=== PATIENT | female | born 1965 | race Caucasian/White ===

== ENCOUNTER 2021-07-04 09:00 | Day surgery (SDC) | payer BC, OTHER ==
[2021-06-29 17:52] VITALS: BMI 25.0
[~2021-07-04 09:00] MED LIST: LACTATED RINGERS 1,000 ML IV SCH
--- NOTE | 2021-07-04 09:05 | P.GSHP ---
History of Present Illness H&P Date: 07/04/21 CHIEF COMPLAINT: Colon screen HISTORY OF PRESENT ILLNESS: The patient is a 56-year-old female who presents for colon screen. Lower endoscopy was offered for further evaluation and management. PAST MEDICAL HISTORY: Please see list. PAST SURGICAL HISTORY: Please see list. MEDICATIONS: Please see list. ALLERGIES: Please see list. SOCIAL HISTORY: No illicit drug use FAMILY HISTORY: No reports of Crohn disease or ulcerative colitis. REVIEW OF ORGAN SYSTEMS: CONSTITUTIONAL: No reports of fevers or chills. PHYSICAL EXAM: VITAL SIGNS: Stable GENERAL: Well-developed pleasant in no acute distress. HEENT: No scleral icterus. Extraocular movements grossly intact. Moist buccal mucosa. NECK: Supple without lymphadenopathy. CHEST: Unlabored respirations. Equal bilateral excursions. CARDIOVASCULAR: Regular rate and rhythm. Distal 2+ pulses. ABDOMEN: Soft, nontender, nondistended. MUSCULOSKELETAL: No clubbing, cyanosis, or edema. ASSESSMENT: 1. Colon screen. PLAN: 1. Recommend proceeding with a lower endoscopy Past Medical History Past Medical History: Asthma, Cancer, Fibromyalgia, GERD/Reflux, Hearing Disorder / Deafness, Musculoskeletal Disorder, Osteoarthritis (OA), Skin Disorder, Sleep Apnea/CPAP/BIPAP Additional Past Medical History / Comment(s): "CERVICAL CA INSITU 1999, REMOVED IN OFFICE." FEBRILE SEIZURE AT 17 MO. HYPOGLYCEMIA. SI JOINTS LOOSE, DISLOCATE EASILY; SCIATICA LT SIDE. 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 ROSACEA. USES CPAP. History of Any Multi-Drug Resistant Organisms: None Reported Past Surgical History: Bladder Surgery, Cholecystectomy, Hysterectomy, Orthopedic Surgery, Tonsillectomy Additional Past Surgical History / Comment(s): SINUS SURGERY. LAPAROSCOPIES, MULT - HX ENDOMETRIOSIS. LT KNEE SCOPE. URETHRAL SUSPENSION. COLONOSCOPY, TAM PROCEDURE Past Anesthesia/Blood Transfusion Reactions: No Reported Reaction Smoking Status: Former smoker - Past Family History Mother Family Medical History: No Reported History Medications and Allergies Home Medications Medication Instructions Recorded Confirmed Type Albuterol Inhaler (Mhu) [Ventolin 1 - 2 puff INHALATION RT-Q6H PRN 06/05/16 06/29/21 History Hfa Inhaler] Gabapentin [Neurontin] 800 mg PO TID PRN 06/05/16 06/29/21 History Albuterol Sulfate [Proair Hfa] 1 - 2 puff INHALATION Q6HR PRN 06/29/21 06/29/21 History Cholecalciferol (Vitamin D3) 125 mcg PO DAILY 06/29/21 06/29/21 History [Vitamin D3 (125 MCG = 5,000 IU)] L.acidoph,Paracasei, B.lactis 1 each PO DAILY 06/29/21 06/29/21 History [Probiotic] Linaclotide [Linzess] 290 mcg PO DAILY 06/29/21 06/29/21 History Midodrine HCl [ProAmantine] 2.5 mg PO DAILY 06/29/21 06/29/21 History guanFACINE HCL [Intuniv] 2 mg PO DAILY 06/29/21 06/29/21 History Allergies Allergy/AdvReac Type Severity Reaction Status Date / Time adhesive tape Allergy RIOS SKIN Verified 06/29/21 17:39 benzocaine Allergy SEVERE Verified 06/29/21 17:39 EDEMA IN VAGINAL AREA benzonatate Allergy Dyspnea Verified 06/29/21 17:39 [From Maria C Robles] gatifloxacin [From Tequin] Allergy Anaphylaxis Verified 06/29/21 17:39
[2021-07-04 09:31] VITALS: TEMP 97.1
[2021-07-04] MEDS ORDERED: LIDOCAINE 1% (10MG/ML) FOR IV START INTRADERMA ONE (09:39)
[2021-07-04 09:49] LABS: Glucose,Whole Blood 99 mg/dL (75-99)
[2021-07-04] MEDS ORDERED: PROPOFOL 10 MG/ML 20 ML VIAL IV ONE (10:02)
--- NOTE | 2021-07-04 10:46 | P.PCN ---
Date of Procedure: 07/04/21 Description of Procedure: PREOPERATIVE DIAGNOSIS: Colonoscopy screening. POSTOPERATIVE DIAGNOSIS: Colonoscopy screening. OPERATION: Colonoscopy to the cecum, ileocecal valve and appendiceal orifice. SURGEON: Leah Muñiz MD. ANESTHESIA: MAC. INDICATIONS: The patient is a 56-year-old female who presents for colonoscopy screening. Benefits and risks were described and informed consent was obtained. DESCRIPTION OF PROCEDURE: The patient had undergone Sutab prep. The patient had been brought into the operating room and laid in the left lateral decubitus position. After adequate intravenous sedation, the rectum was examined with 2% lidocaine jelly. No external hemorrhoids were encountered. The rectal tone was within normal limits. No lesions were palpated in the rectal vault. An Olympus colonoscope was advanced until the cecum, ileocecal valve and appendiceal orifice were clearly viewed. The prep was fair. No scattered diverticulosis was encountered. No colonic polyps were found. No evidence of focal colitis was found. Retroflexion of the scope demonstrated grade 1 internal hemorrhoids without active bleeding or inflammation. The colon was desufflated. The patient had tolerated the procedure well. Withdrawal time was over 6 minutes. FINDINGS: Aronchick preparation quality scale 3 (1-5) Internal hemorrhoids, grade 1 No external prolapsed hemorrhoids. No arteriovenous malformations. No adenomatous polyps. No focal colitis. RECOMMENDATIONS: Lower endoscopy in 5 years, 2025 Plan - Discharge Summary Discharge Rx Participant: No New Discharge Prescriptions: Continue Albuterol Inhaler (Mhu) [Ventolin Hfa Inhaler (Mhu)] 1 - 2 puff INHALATION RT-Q6H PRN PRN Reason: ASTHMA SX Gabapentin [Neurontin] 800 mg PO TID PRN PRN Reason: Pain guanFACINE HCL [Intuniv] 2 mg PO DAILY L.acidoph,Paracasei, B.lactis [Probiotic] 1 each PO DAILY Cholecalciferol (Vitamin D3) [Vitamin D3 (125 MCG = 5,000 IU)] 125 mcg PO DAILY Albuterol Sulfate [Proair Hfa] 1 - 2 puff INHALATION Q6HR PRN PRN Reason: ASTHMA Midodrine HCl [ProAmantine] 2.5 mg PO DAILY Linaclotide [Linzess] 290 mcg PO DAILY Discharge Medication List Albuterol Inhaler (Mhu) [Ventolin Hfa Inhaler (Mhu)] 1 - 2 puff INHALATION RT- Q6H PRN 06/05/16 [History] Gabapentin [Neurontin] 800 mg PO TID PRN 06/05/16 [History] Albuterol Sulfate [Proair Hfa] 1 - 2 puff INHALATION Q6HR PRN 06/29/21 [History] Cholecalciferol (Vitamin D3) [Vitamin D3 (125 MCG = 5,000 IU)] 125 mcg PO DAILY 06/29/21 [History] L.acidoph,Paracasei, B.lactis [Probiotic] 1 each PO DAILY 06/29/21 [History] Linaclotide [Linzess] 290 mcg PO DAILY 06/29/21 [History] Midodrine HCl [ProAmantine] 2.5 mg PO DAILY 06/29/21 [History] guanFACINE HCL [Intuniv] 2 mg PO DAILY 06/29/21 [History] Follow up Appointment(s)/Referral(s): Leah Muñiz MD [STAFF PHYSICIAN] - As Needed Patient Instructions/Handouts: *[facility] - (Anesthesia) Endoscopy Discharge Instructions, Colonoscopy (DC) Activity/Diet/Wound Care/Special Instructions: Repeat colonoscopy 5 years, 2025 Discharge Disposition: HOME SELF-CARE
[2021-07-04 11:17] VITALS: BP 128/76; PULSE 58; RESP 16
== END 2021-07-04 11:32 | disposition home or self-care (01) ==
LOC: ORWHC2ENDO 09:00
PROVIDERS: ATTEND Surgery Plastic and Reconstructive Surgery
DX: Z12.11 Encounter for screening for malignant neoplasm of colon (principal); K64.0 First degree hemorrhoids; J45.909 Unspecified asthma, uncomplicated; M79.7 Fibromyalgia; K21.9 Gastro-esophageal reflux disease without esophagitis; H91.90 Unspecified hearing loss, unspecified ear; G47.33 Obstructive sleep apnea (adult) (pediatric); B27.00 Gammaherpesviral mononucleosis without complication; M19.90 Unspecified osteoarthritis, unspecified site; E16.2 Hypoglycemia, unspecified; G47.30 Sleep apnea, unspecified; M54.32 Sciatica, left side; Z85.41 Personal history of malignant neoplasm of cervix uteri; Z98.890 Other specified postprocedural states; Z87.891 Personal history of nicotine dependence; L71.9 Rosacea, unspecified; Z90.49 Acquired absence of other specified parts of digestive tract; Z90.710 Acquired absence of both cervix and uterus; Z79.899 Other long term (current) drug therapy; Z88.8 Allergy status to other drugs, medicaments and biological substances; Z91.09 Other allergy status, other than to drugs and biological substances; F98.8 Other specified behavioral and emotional disorders with onset usually occurring in childhood and adolescence
CPT/HCPCS: J2704; G0121

== ENCOUNTER → 2022-12-14 | Outpatient (CLI) | payer OTHER ==
[2022-12-14 10:19] VITALS: BP 117/73; PULSE 64; RESP 16; TEMP 97.9
--- NOTE | 2022-12-14 10:42 | P.GSHP ---
History of Present Illness H&P Date: 12/14/22 Chief Complaint: Right breast pain Alejandra is a 57-year-old white female seen in consultation for Dr. Pierce regarding right breast pain. She underwent a bilateral mammogram on [id number] which was benign BIRADS 2. She then underwent a right breast diagnostic mammogram on 2922 followed by a right breast ultrasound and which were benign BIRADS 1. Approximately August 2022 she experienced shooting pain in her right breast starting from medial going to the area of the nipple. Concurrent with that she noted itching of the nipple areolar complex throughout the day. The pain was fleeting and intermittent. She did not attribute any specific activity to elicit in the pain. She also noted that the nipple on the right side was more tract. The pain has resolved. The nipple continues to be indirect. She is not complaining of any nipple discharge or skin changes otherwise. She has never had any surgery on her breast. She is not complaining of any recent trauma or infection in the breast. She is not complaining of any pain or changes in the left breast. The patient has lost 65 pounds in the last year. There was no change in the hormone prescription within the breast pain started. The patient has had cervical cancer insitu in 1999. Caffeine: several cans of ice a day nicotine: none, stopped since 1987 chocolate: occasional BCP: when diagnosed with endometirosis in her 20's used them for 20 years hormones: takes estradiol and vaginal inserts Family History: adopted biological aunt maternal : cervical cancer Hormonal History; menarche: 11 G2M2 hysterectomy at 42 left ovaries hormones: since June 2021 BCP: 1994 until 2006 Surgical History: hysterectomy 5 laporotomy to clean out endometriosis gallbladder knee surgery Eulogio fundoplication bladder sling sinus surgery tonsil 3 colonoscopies, EGD Medical History: asthma\\hypoglycemia low BP ADHD IBS epsteen wells Social History: nicotine: none alcohol: rare drugs: none - Constitutional Constitutional: Reports sweats - EENT Eyes: denies blurred vision, denies pain Ears: deny: decreased hearing (auditory processing disorder) Ears, nose, mouth and throat: Reports headache - Breasts Breasts: bilateral: as per HPI - Cardiovascular Cardiovascular: Reports shortness of breath, Denies chest pain - Respiratory Comment: asthma - Gastrointestinal Comment: IBS Gastrointestinal: Reports diarrhea, Denies abdominal pain, Denies nausea, Denies vomiting - Genitourinary (Female) Comment: chronic kidney stones Genitourinary: Reports kidney stones - Menstruation Menstruation: Reports post hysterectomy - Musculoskeletal Comment: Fibromyalgia, Jacy-Wells - Integumentary Integumentary: Reports as per HPI - Neurological Neurological: Denies numbness, Denies weakness - Psychiatric Psychiatric: Reports anxiety, Reports depression - Endocrine Endocrine: Reports fatigue, Reports weight change - Hematologic/Lymphatic Comment: none - Allergic/Immunologic Allergic/Immunologic: Reports seasonal allergies Past Medical History Past Medical History: Asthma, Cancer, Fibromyalgia, GERD/Reflux, Hearing Disorder / Deafness, Musculoskeletal Disorder, Osteoarthritis (OA), Skin Disorder, Sleep Apnea/CPAP/BIPAP Additional Past Medical History / Comment(s): "CERVICAL CA INSITU 1999, REMOVED IN OFFICE." FEBRILE SEIZURE AT 17 MO. HYPOGLYCEMIA. SI JOINTS LOOSE, DISLOCATE EASILY; SCIATICA LT SIDE. ALTERATION IN HEARING, eSTEIN-WELLS. ROSACEA. USES CPAP. History of Any Multi-Drug Resistant Organisms: None Reported Past Surgical History: Bladder Surgery, Cholecystectomy, Hysterectomy, Orthopedic Surgery, Tonsillectomy Additional Past Surgical History / Comment(s): SINUS SURGERY. LAPAROSCOPIES, MULT - HX ENDOMETRIOSIS. LT KNEE SCOPE. URETHRAL SUSPENSION. COLONOSCOPY, TAM PROCEDURE Past Anesthesia/Blood Transfusion Reactions: No Reported Reaction Past Psychological History: ADD/ADHD, Depression Additional Psychological History / Comment(s): INTERMITTENT-UNDER CONTROL Smoking Status: Former smoker Past Alcohol Use History: Occasional Additional Past Alcohol Use History / Comment(s): QUIT SMOKING 1988 Past Drug Use History: None Reported - Past Family History Mother Family Medical History: No Reported History Medications and Allergies Home Medications Medication Instructions Recorded Confirmed Type Albuterol Inhaler [Ventolin Hfa 1 - 2 puff INHALATION RT-Q6H PRN 06/05/16 12/14/22 History Inhaler] Gabapentin [Neurontin] 800 mg PO TID PRN 06/05/16 12/14/22 History Albuterol Sulfate [Proair Hfa] 1 - 2 puff INHALATION Q6HR PRN 06/29/21 12/14/22 History Cholecalciferol (Vitamin D3) 125 mcg PO DAILY 06/29/21 12/14/22 History [Vitamin D3 (125 MCG = 5,000 IU)] L.acidoph,Paracasei, B.lactis 1 each PO DAILY 06/29/21 12/14/22 History [Probiotic] Linaclotide [Linzess] 290 mcg PO DAILY 06/29/21 12/14/22 History Midodrine HCl [ProAmantine] 2.5 mg PO DAILY 06/29/21 12/14/22 History guanFACINE HCL [Intuniv] 2 mg PO DAILY 06/29/21 12/14/22 History estradioL 0.5 mg PO DAILY 12/14/22 12/14/22 History Allergies Allergy/AdvReac Type Severity Reaction Status Date / Time adhesive tape Allergy RIOS SKIN Verified 12/14/22 10:06 benzocaine Allergy SEVERE Verified 12/14/22 10:06 EDEMA IN VAGINAL AREA benzonatate Allergy Dyspnea Verified 12/14/22 10:06 [From Tessalon Perles] gatifloxacin [From Tequin] Allergy Anaphylaxis Verified 12/14/22 10:06 Surgical - Exam Vital Signs Temp Pulse Resp BP Pulse Ox 97.9 F 64 16 117/73 98 12/14/22 10:13 12/14/22 10:13 12/14/22 10:13 12/14/22 10:13 12/14/22 10:13 - General no distress - Eyes normal ocular movement - Neck trachea midline - Respiratory normal respiratory effort, clear to auscultation - Cardiovascular Rhythm: regular Heart Sounds: normal: S1, S2 - Abdomen Abdomen: soft, non tender, no guarding, no rigid, no rebound - Integumentary normal turgor - Neurologic no disoriented, no combative - Musculoskeletal normal gait - Psychiatric oriented to time, oriented to person, oriented to place, speech is normal, memory intact Breast Exam: BRA: 34B Inspection: Bilateral grade 2 ptosis Palpation: Weight breasts: Multiple positional exam fibroglandular tissue fibrocystic changes no discrete dominant masses or nodules of concern, no nipple discharge Axilla: No adenopathy of concern Left breast: Multi-positional exam fibrocystic changes no dominant masses or nodules of concern Left axilla: No adenopathy of concern Results Mammogram and ultrasound results reviewed Assessment and Plan Assessment: Impression: Right breast sporadic shooting pain which seems to have resolved Positive history of fibromyalgia/Jacy-Wells virus Bilateral mammogram in May was BIRADS 2, repeat right breast mammogram and ultrasound in September 2022 benign BIRADS 1 Plan: At this time there is no anatomic lesion radiographically on physical exam which would warrant interventional biopsy We will continue to follow closely clinically Recommend staying away from caffeine to decrease fibrocystic changes, the patient will consider lifestyle modification Repeat bilateral mammogram in May with physician exam at that time The patient will follow up sooner any questions or concerns Cc: Dr. Pierce
== END ==
LOC: WWCWWP 09:57
PROVIDERS: ATTEND Surgery
DX: Z85.3 Personal history of malignant neoplasm of breast (principal); J45.909 Unspecified asthma, uncomplicated; K21.9 Gastro-esophageal reflux disease without esophagitis; K58.9 Irritable bowel syndrome, unspecified; M19.90 Unspecified osteoarthritis, unspecified site; M79.7 Fibromyalgia; N64.4 Mastodynia; Z85.41 Personal history of malignant neoplasm of cervix uteri; Z87.891 Personal history of nicotine dependence; Z90.49 Acquired absence of other specified parts of digestive tract; Z90.710 Acquired absence of both cervix and uterus; Z80.9 Family history of malignant neoplasm, unspecified; Z91.048 Other nonmedicinal substance allergy status; Z88.1 Allergy status to other antibiotic agents; Z88.8 Allergy status to other drugs, medicaments and biological substances

== ENCOUNTER → 2023-06-11 | Outpatient (CLI) | payer OTHER ==
--- NOTE | 2023-06-13 09:23 | MM ---
Reason for Exam: Screening (asymptomatic). Last screening mammogram was performed 8 month(s) ago. Patient History: Menarche at age 11. Hysterectomy at age 42. Postmenopausal. Other cancer. Patient used Estrogen and Progesterone for 20 years. Risk Values: Gemma 5 year model risk: 1.0%. NCI Lifetime model risk: 5.5%. Prior Study Comparison: 06/18/2018 Bilateral Screening Mammogram, Unknown. 03/22/2021 Bilateral Screening Mammogram, Unknown. 06/07/2022 Bilateral Screening Mammogram, Unknown. Tissue Density: The breast tissue is heterogeneously dense. This may lower the sensitivity of mammography. Findings: Analyzed By CAD. There is no suspicious group of microcalcifications or new suspicious mass in either breast. Overall Assessment: Benign, BI-RAD 2 Management: Screening Mammogram of both breasts in 1 year. . Patient should continue monthly self-breast exams. A clinical breast exam by your physician is recommended on an annual basis. This exam should not preclude additional follow-up of suspicious palpable abnormalities. Note on Gemma scores and lifetime risk: 1. A Gemma score greater than 3% is considered moderate risk. If this is the case, consider specialist referral to assess eligibility for a risk reducing agent. 2. If overall lifetime risk for the development of breast cancer is 20% or higher, the patient may qualify for future screening with alternating mammogram and breast MRI. Electronically signed and approved by: Marcial Goldsmith M.D. Radiologis
== END | disposition home or self-care (01) ==
LOC: RADMAMWWP 13:13
PROVIDERS: ATTEND Surgery
DX: Z12.31 Encounter for screening mammogram for malignant neoplasm of breast (principal); Z78.0 Asymptomatic menopausal state
CPT/HCPCS: 77063; 77067

== ENCOUNTER → 2023-06-20 | Outpatient (CLI) | payer OTHER ==
--- NOTE | 2023-06-20 13:58 | P.PN ---
Subjective Progress Note Date: 06/20/23 Principal diagnosis: fibrocystic breast changes History of Present Illness Chief Complaint: Right breast pain Alejandra is a 57-year-old white female seen in consultation for Dr. Pierce on 12-14-22 regarding right breast pain. She underwent a bilateral mammogram on [id number] which was benign BIRADS 2. She then underwent a right breast diagnostic mammogram on 2922 followed by a right breast ultrasound on which were benign BIRADS 1. Patient was initially seen she had been experiencing some pain in her right breast. This has largely subsided. She is not complaining of any new lumps masses or nodules of concern in either breast. She has decreased her caffeine intake. She is continuing to take her hormones. She lost 60 pounds in 2020, but has gained back about 10 pounds. Caffeine: several cans of ice a day nicotine: none, stopped since 1987 chocolate: occasional BCP: when diagnosed with endometirosis in her 20's used them for 20 years hormones: takes estradiol and vaginal inserts Family History: adopted biological aunt maternal : cervical cancer Hormonal History; menarche: 11 G2M2 hysterectomy at 42 left ovaries hormones: since June 2021 BCP: 1994 until 2006 Surgical History: hysterectomy 5 laporotomy to clean out endometriosis gallbladder knee surgery Eulogio fundoplication bladder sling sinus surgery tonsil 3 colonoscopies, EGD Medical History: asthma\\hypoglycemia low BP ADHD IBS epsteen wells Social History: nicotine: none alcohol: rare drugs: none - Constitutional Constitutional: Reports sweats - EENT Eyes: denies blurred vision, denies pain Ears: deny: decreased hearing (auditory processing disorder) Ears, nose, mouth and throat: Reports headache - Breasts Breasts: bilateral: as per HPI - Cardiovascular Cardiovascular: Reports shortness of breath, Denies chest pain - Respiratory Comment: asthma - Gastrointestinal Comment: IBS Gastrointestinal: Reports diarrhea, Denies abdominal pain, Denies nausea, Denies vomiting - Genitourinary (Female) Comment: chronic kidney stones Genitourinary: Reports kidney stones - Menstruation Menstruation: Reports post hysterectomy - Musculoskeletal Comment: Fibromyalgia, Jacy-Wells - Integumentary Integumentary: Reports as per HPI - Neurological Neurological: Denies numbness, Denies weakness - Psychiatric Psychiatric: Reports anxiety, Reports depression - Endocrine Endocrine: Reports fatigue, Reports weight change - Hematologic/Lymphatic Comment: none - Allergic/Immunologic Allergic/Immunologic: Reports seasonal allergies Past Medical History Past Medical History: Asthma, Cancer, Fibromyalgia, GERD/Reflux, Hearing Disorder / Deafness, Musculoskeletal Disorder, Osteoarthritis (OA), Skin Disorder, Sleep Apnea/CPAP/BIPAP Additional Past Medical History / Comment(s): "CERVICAL CA INSITU 1999, REMOVED IN OFFICE." FEBRILE SEIZURE AT 17 MO. HYPOGLYCEMIA. SI JOINTS LOOSE, DISLOCATE EASILY; SCIATICA LT SIDE. ALTERATION IN HEARING, eSTEIN-WELLS. ROSACEA. USES CPAP. History of Any Multi-Drug Resistant Organisms: None Reported Past Surgical History: Bladder Surgery, Cholecystectomy, Hysterectomy, Orthopedic Surgery, Tonsillectomy Additional Past Surgical History / Comment(s): SINUS SURGERY. LAPAROSCOPIES, MULT - HX ENDOMETRIOSIS. LT KNEE SCOPE. URETHRAL SUSPENSION. COLONOSCOPY, TAM PROCEDURE Past Anesthesia/Blood Transfusion Reactions: No Reported Reaction Past Psychological History: ADD/ADHD, Depression Additional Psychological History / Comment(s): INTERMITTENT-UNDER CONTROL Smoking Status: Former smoker Past Alcohol Use History: Occasional Additional Past Alcohol Use History / Comment(s): QUIT SMOKING 1988 Past Drug Use History: None Reported - Past Family History Mother Family Medical History: No Reported History Medications and Allergies Home Medications Medication Instructions Recorded Confirmed Type Albuterol Inhaler [Ventolin Hfa 1 - 2 puff INHALATION RT-Q6H PRN 06/05/16 12/14/22 History Inhaler] Gabapentin [Neurontin] 800 mg PO TID PRN 06/05/16 12/14/22 History Albuterol Sulfate [Proair Hfa] 1 - 2 puff INHALATION Q6HR PRN 06/29/21 12/14/22 History Cholecalciferol (Vitamin D3) 125 mcg PO DAILY 06/29/21 12/14/22 History [Vitamin D3 (125 MCG = 5,000 IU)] L.acidoph,Paracasei, B.lactis 1 each PO DAILY 06/29/21 12/14/22 History [Probiotic] Linaclotide [Linzess] 290 mcg PO DAILY 06/29/21 12/14/22 History Midodrine HCl [ProAmantine] 2.5 mg PO DAILY 06/29/21 12/14/22 History guanFACINE HCL [Intuniv] 2 mg PO DAILY 06/29/21 12/14/22 History estradioL 0.5 mg PO DAILY 12/14/22 12/14/22 History Allergies Allergy/AdvReac Type Severity Reaction Status Date / Time adhesive tape Allergy RIOS SKIN Verified 12/14/22 10:06 benzocaine Allergy SEVERE Verified 12/14/22 10:06 EDEMA IN VAGINAL AREA benzonatate Allergy Dyspnea Verified 12/14/22 10:06 [From Tessalon Perles] gatifloxacin [From Tequin] Allergy Anaphylaxis Verified 12/14/22 10:06 Objective - Constitutional General appearance: Present: cooperative - EENT Eyes: Present: EOMI ENT: Present: hearing grossly normal - Neck Neck: Present: normal ROM - Respiratory Respiratory: bilateral: CTA - Cardiovascular Heart sounds: normal: S1, S2 - Integumentary Integumentary: Present: normal turgor - Musculoskeletal Musculoskeletal: Present: gait normal - Psychiatric Psychiatric: Present: A&O x's 3, appropriate affect, intact judgment & insight - Additional findings Additional findings: Breast Exam: BRA: 34B Inspection: Bilateral grade 2 ptosis Palpation: right breasts: Multi-positional exam fibroglandular tissue fibrocystic changes no discrete dominant masses or nodules of concern, no nipple discharge Axilla: No adenopathy of concern Left breast: Multi-positional exam fibrocystic changes no dominant masses or nodules of concern Left axilla: No adenopathy of concern Assessment and Plan Assessment: Impression: Right breast sporadic shooting pain which seems to have resolved Positive history of fibromyalgia/Jacy-Wells virus Bilateral mammogram 06-11-23 was BIRADS 2 Plan: At this time there is no anatomic lesion radiographically on physical exam which would warrant interventional biopsy We will continue to follow closely clinically Recommend staying away from caffeine to decrease fibrocystic changes, the patient will consider lifestyle modification Repeat bilateral mammogram in May 2024 with physician exam at that time Stopping the hormones may also decrease any breast discomfort however the pain seems to have resolved at this time The patient will follow up sooner any questions or concerns Cc: Dr. Pierce
[2023-06-20 14:32] VITALS: BP 123/69; PULSE 65; RESP 17; TEMP 97.8
== END ==
LOC: WWCWWP 13:13
PROVIDERS: ATTEND Surgery
DX: Z12.31 Encounter for screening mammogram for malignant neoplasm of breast (principal); N60.11 Diffuse cystic mastopathy of right breast; M79.7 Fibromyalgia; N64.4 Mastodynia; K21.9 Gastro-esophageal reflux disease without esophagitis; K58.9 Irritable bowel syndrome, unspecified; M19.90 Unspecified osteoarthritis, unspecified site; G47.30 Sleep apnea, unspecified; J45.909 Unspecified asthma, uncomplicated; Z85.41 Personal history of malignant neoplasm of cervix uteri; Z87.891 Personal history of nicotine dependence; Z90.49 Acquired absence of other specified parts of digestive tract; Z79.51 Long term (current) use of inhaled steroids; Z91.048 Other nonmedicinal substance allergy status; Z88.8 Allergy status to other drugs, medicaments and biological substances; Z88.1 Allergy status to other antibiotic agents; Z79.899 Other long term (current) drug therapy

== ENCOUNTER → 2024-06-18 | Outpatient (CLI) | payer OTHER ==
--- NOTE | 2024-06-20 08:31 | MM ---
Reason for Exam: Screening (asymptomatic). Last screening mammogram was performed 12 month(s) ago. Patient History: Menarche at age 11. Hysterectomy at age 42. Postmenopausal. Other cancer. Patient used Estrogen and Progesterone for 20 years. Risk Values: Gemma 5 year model risk: 1.0%. NCI Lifetime model risk: 5.3%. Prior Study Comparison: 06/07/2022 Bilateral Screening Mammogram, [facility]. 10/05/2022 Right Diagnostic Mammogram, [facility]. 06/11/2023 Bilateral MG 3D screening mammo w/cad, [facility]. Tissue Density: The breasts are heterogeneously dense, which may obscure small masses. Findings: Analyzed By CAD. There is no suspicious group of microcalcifications or new suspicious mass in either breast. Overall Assessment: Negative, BI-RAD 1 Management: Screening Mammogram of both breasts in 1 year. . Patient should continue monthly self-breast exams. A clinical breast exam by your physician is recommended on an annual basis. This exam should not preclude additional follow-up of suspicious palpable abnormalities. Note on Gemma scores and lifetime risk: 1. A Gemma score greater than 3% is considered moderate risk. If this is the case, consider specialist referral to assess eligibility for a risk reducing agent. 2. If overall lifetime risk for the development of breast cancer is 20% or higher, the patient may qualify for future screening with alternating mammogram and breast MRI. [facility], , 06/20/2024 8:28 AM. Electronically signed and approved by: Marcial Goldsmith M.D. Radiologis
== END | disposition home or self-care (01) ==
LOC: RADMAMWWP 12:47
PROVIDERS: ATTEND Surgery
CPT/HCPCS: 77063; 77067

== ENCOUNTER → 2024-06-20 | Outpatient (CLI) | payer OTHER ==
[2024-06-20 12:12] VITALS: BP 118/77; PULSE 59; RESP 17; TEMP 97.9
--- NOTE | 2024-06-20 12:24 | P.PN ---
Subjective Progress Note Date: 06/20/24 Principal diagnosis: fibrocystic breast disease 06/20/24 Principal diagnosis: fibrocystic breast changes History of Present Illness Chief Complaint: Right breast pain Alejandra is a 59-year-old white female seen in consultation for Dr. Pierce on 12-14-22 regarding right breast pain. She underwent a bilateral mammogram on [id number] which was benign BIRADS 2. She then underwent a right breast diagnostic mammogram on 2922 followed by a right breast ultrasound on which were benign BIRADS 1. Patient was initially seen she had been experiencing some pain in her right breast. This has largely subsided. She is not complaining of any new lumps masses or nodules of concern in either breast. She has decreased her caffeine intake. She is continuing to take her hormones. She lost 60 pounds in 2020, but has gained back about 10 pounds. She is now about 145 pounds, at her most she was 193 pounds. bilateral mammogram on 06-18-24 personally interpreted BIRAD 1 She has had multiple losses recently, her dad, her brother, and 4 cats all . Caffeine: several cans of ice a day one bottle of diet coke/day nicotine: none, stopped since 1987 chocolate: occasional BCP: when diagnosed with endometirosis in her 20's used them for 20 years hormones: takes estradiol and vaginal inserts Family History: adopted biological aunt maternal : cervical cancer Hormonal History; menarche: 11 G2M2 hysterectomy at 42 left ovaries hormones: since June 2021 BCP: 1994 until 2006 Surgical History: hysterectomy 5 laporotomy to clean out endometriosis gallbladder knee surgery Eulogio fundoplication bladder sling sinus surgery tonsil 3 colonoscopies, EGD Medical History: asthma\\hypoglycemia low BP ADHD IBS epsteen wells Social History: nicotine: none alcohol: rare drugs: none - Constitutional Constitutional: Reports sweats - EENT Eyes: denies blurred vision, denies pain Ears: deny: decreased hearing (auditory processing disorder) Ears, nose, mouth and throat: Reports headache - Breasts Breasts: bilateral: as per HPI - Cardiovascular Cardiovascular: Reports shortness of breath, Denies chest pain - Respiratory Comment: asthma - Gastrointestinal Comment: IBS Gastrointestinal: Reports diarrhea, Denies abdominal pain, Denies nausea, Denies vomiting - Genitourinary (Female) Comment: chronic kidney stones Genitourinary: Reports kidney stones - Menstruation Menstruation: Reports post hysterectomy - Musculoskeletal Comment: Fibromyalgia, Jacy-Wells - Integumentary Integumentary: Reports as per HPI - Neurological Neurological: Denies numbness, Denies weakness - Psychiatric Psychiatric: Reports anxiety, Reports depression - Endocrine Endocrine: Reports fatigue, Reports weight change - Hematologic/Lymphatic Comment: none - Allergic/Immunologic Allergic/Immunologic: Reports seasonal allergies Past Medical History Past Medical History: Asthma, Cancer, Fibromyalgia, GERD/Reflux, Hearing Disorder / Deafness, Musculoskeletal Disorder, Osteoarthritis (OA), Skin Disorder, Sleep Apnea/CPAP/BIPAP Additional Past Medical History / Comment(s): "CERVICAL CA INSITU 1999, REMOVED IN OFFICE." FEBRILE SEIZURE AT 17 MO. HYPOGLYCEMIA. SI JOINTS LOOSE, DISLOCATE EASILY; SCIATICA LT SIDE. ALTERATION IN HEARING, eSTEIN-WELLS. ROSACEA. USES CPAP. History of Any Multi-Drug Resistant Organisms: None Reported Past Surgical History: Bladder Surgery, Cholecystectomy, Hysterectomy, Orthopedic Surgery, Tonsillectomy Additional Past Surgical History / Comment(s): SINUS SURGERY. LAPAROSCOPIES, MULT - HX ENDOMETRIOSIS. LT KNEE SCOPE. URETHRAL SUSPENSION. COLONOSCOPY, TAM PROCEDURE Past Anesthesia/Blood Transfusion Reactions: No Reported Reaction Past Psychological History: ADD/ADHD, Depression Additional Psychological History / Comment(s): INTERMITTENT-UNDER CONTROL Smoking Status: Former smoker Past Alcohol Use History: Occasional Additional Past Alcohol Use History / Comment(s): QUIT SMOKING 1988 Past Drug Use History: None Reported - Past Family History Mother Family Medical History: No Reported History Medications and Allergies Home Medications Medication Instructions Recorded Confirmed Type Albuterol Inhaler [Ventolin Hfa 1 - 2 puff INHALATION RT-Q6H PRN 06/05/16 12/14/22 History Inhaler] Gabapentin [Neurontin] 800 mg PO TID PRN 06/05/16 12/14/22 History Albuterol Sulfate [Proair Hfa] 1 - 2 puff INHALATION Q6HR PRN 06/29/21 12/14/22 History Cholecalciferol (Vitamin D3) 125 mcg PO DAILY 06/29/21 12/14/22 History [Vitamin D3 (125 MCG = 5,000 IU)] L.acidoph,Paracasei, B.lactis 1 each PO DAILY 06/29/21 12/14/22 History [Probiotic] Linaclotide [Linzess] 290 mcg PO DAILY 06/29/21 12/14/22 History Midodrine HCl [ProAmantine] 2.5 mg PO DAILY 06/29/21 12/14/22 History guanFACINE HCL [Intuniv] 2 mg PO DAILY 06/29/21 12/14/22 History estradioL 0.5 mg PO DAILY 12/14/22 12/14/22 History Allergies Allergy/AdvReac Type Severity Reaction Status Date / Time adhesive tape Allergy RIOS SKIN Verified 12/14/22 10:06 benzocaine Allergy SEVERE Verified 12/14/22 10:06 EDEMA IN VAGINAL AREA benzonatate Allergy Dyspnea Verified 12/14/22 10:06 [From Tessalon Perles] gatifloxacin [From Tequin] Allergy Anaphylaxis Verified 12/14/22 10:06 Objective - Vital Signs Vital signs: Vital Signs Temp 97.9 F 06/20/24 12:08 Pulse 59 L 06/20/24 12:08 Resp 17 06/20/24 12:08 BP 118/77 06/20/24 12:08 Pulse Ox 97 06/20/24 12:08 FiO2 Intake & Output 06/19/24 06/20/24 06/20/24 18:59 06:59 18:59 Weight 65.771 kg - Constitutional General appearance: Present: cooperative - EENT Eyes: Present: EOMI ENT: Present: hearing grossly normal - Neck Neck: Present: normal ROM - Respiratory Respiratory: bilateral: CTA - Cardiovascular Rhythm: regular - Gastrointestinal General gastrointestinal: Present: soft - Integumentary Integumentary: Present: normal turgor - Musculoskeletal Musculoskeletal: Present: gait normal - Psychiatric Psychiatric: Present: A&O x's 3, appropriate affect, intact judgment & insight - Additional findings Additional findings: Breast Exam: BRA: 34B Inspection: Bilateral grade 2 ptosis Palpation: right breasts: Multi-positional exam fibroglandular tissue fibrocystic changes no discrete dominant masses or nodules of concern, no nipple discharge Axilla: No adenopathy of concern Left breast: Multi-positional exam fibrocystic changes no dominant masses or nodules of concern Left axilla: No adenopathy of concern Assessment and Plan Assessment: Impression: Right breast sporadic shooting pain which seems to have resolved Positive history of fibromyalgia/Jacy-Wells virus Bilateral mammogram 06-18-24 was BIRADS 1 personally interpreted Plan: At this time there is no anatomic lesion radiographically on physical exam which would warrant interventional biopsy We will continue to follow closely clinically Recommend staying away from caffeine to decrease fibrocystic changes, the patient will consider lifestyle modification Repeat bilateral mammogram in May 2025 with physician exam at that time Cc: Dr. Pierce
== END ==
LOC: WWCWWP 11:37
PROVIDERS: ATTEND Surgery